=== PATIENT | male | born 1945 | race Caucasian/White ===

== ENCOUNTER → 2016-06-15 | Day surgery (SDC) | payer MEDICARE ==
[~2016-06-15] MED LIST: Acetaminophen TAB* 325 MG PO PRN; Buffered Lidocaine 1% SYR 3ML* 3 ML/SYR SYRINGE INTRADERM ONE; Buffered Lidocaine 1% SYR 3ML* 3 ML/SYR SYRINGE ONE; Cyclopentolate 1% OPTH.SOL* 2 ML BTL ONE; Flurbiprofen 0.03% OPTH.SOL* 2.5 ML BTL ONE; Lidocaine 1% MPF* 2 ML VIAL ONE; Midazolam* 1 MG/ML 5 ML VIAL (5 MG) ONE; Neomycin/Polymy/Dex OPHTH.OIN* 3.5 GM ONE; Phenylephrine 2.5% OPTH.SOL* 2 ML BTL ONE; Povidone Iodine 5% OPTH* 30 ML BTL ONE; Proparacaine 0.5% OPHTH.SOL* 15 ML BTL ONE; Tetracaine 0.5% OPTH.SOL 4 ML* 1 DROP BTL ONE; acetaZOLAMIDE TAB* 250 MG ONE; fentaNYL* 50 MCG/ML 2 ML VIAL (100 MCG VIAL) ONE
[2016-06-15 11:48] VITALS: BP 105/66
--- NOTE | 2016-06-16 03:49 | OP ---
DATE OF SURGERY: 06/15/16 - [facility] DATE OF : 41 SURGEON: Maycol Cortes MD ANESTHESIOLOGIST: Angélica Mccord MD ANESTHESIA: Monitored anesthesia care. 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 OPERATIVE PROCEDURE: Cataract extraction of the right eye. IMPLANTS: SN60WF 20.5 diopter lens to the right eye. COMPLICATIONS: None. DESCRIPTION OF PROCEDURE: The patient was given phenylephrine 2.5% and cyclopentolate 1% eyedrops to the operative eye in the preoperative area. The patient was brought to the operating room where a time-out was taken to identify the correct patient, site, and side of surgery. The patient's right eye was prepped and draped in the usual sterile fashion with 5% Betadine. A second time- out was taken to verify the correct patient, site, and side of surgery and correct lens selection. A lid speculum was placed to the right eye. A 1-mm paracentesis blade was used to make a clear corneal incision in the superotemporal position. Preservative-free 1% lidocaine was injected into the anterior chamber. DuoVisc was then injected into the anterior chamber. A 2.75 mm keratome blade was used to make a triplanar incision at the inferotemporal position. A cystotome was used to initiate a capsulorrhexis, which was completed with the Utrata forceps in a continuous and curvilinear manner. Hydrodissection of the lens was then performed with BSS on a cannula. The lens could be spun in the capsular bag. The phacoemulsification handpiece was then used with a opjnih-rbi-vqepvkm technique to remove the nucleus in its entirety with 14.65 CDE. During phacoemulsification, was reapplied to protect the endothelium. The I/A handpiece was then used to remove the residual cortical lens material. DuoVisc was then injected to inflate the capsular bag. The planned SN60WF 20.5 diopter lens was then injected into the capsular bag. The residual DuoVisc was then removed from the eye with the I/A handpiece. The corneal incisions were then hydrated and no leaks occurred at physiologic pressure around 20 mmHg per palpation. The lid speculum was then removed and drapes removed. Maxitrol ointment was then placed to the surface of the operative eye. An adhesive patch and shield were then placed on the operative eye. The patient was taken to the postoperative area in stable condition. [id number]/[facility] #: [id number] MTDD
== END | disposition home or self-care (01) ==
LOC: OREAST 09:14
PROVIDERS: ATTEND Student in an Organized Health Care Education/Training Program
DX: H25.11 Age-related nuclear cataract, right eye (principal); H18.51 Endothelial corneal dystrophy; I48.91 Unspecified atrial fibrillation; Z79.01 Long term (current) use of anticoagulants; Z87.891 Personal history of nicotine dependence; J44.9 Chronic obstructive pulmonary disease, unspecified
CPT/HCPCS: A9270-GY; J2250; J3010; V2632

== ENCOUNTER → 2016-06-22 | Day surgery (SDC) | payer MEDICARE ==
[~2016-06-22] MED LIST changes: -Buffered Lidocaine 1% SYR 3ML* 3 ML/SYR SYRINGE ONE; -Cyclopentolate 1% OPTH.SOL* 2 ML BTL ONE; -Flurbiprofen 0.03% OPTH.SOL* 2.5 ML BTL ONE; -Lidocaine 1% MPF* 2 ML VIAL ONE; +Midazolam* 1 MG/ML 2 ML VIAL (2 MG) ONE; -Midazolam* 1 MG/ML 5 ML VIAL (5 MG) ONE; -Neomycin/Polymy/Dex OPHTH.OIN* 3.5 GM ONE; -Phenylephrine 2.5% OPTH.SOL* 2 ML BTL ONE; -Povidone Iodine 5% OPTH* 30 ML BTL ONE; -Proparacaine 0.5% OPHTH.SOL* 15 ML BTL ONE; -Tetracaine 0.5% OPTH.SOL 4 ML* 1 DROP BTL ONE; -acetaZOLAMIDE TAB* 250 MG ONE; -fentaNYL* 50 MCG/ML 2 ML VIAL (100 MCG VIAL) ONE
[2016-06-22 08:27] VITALS: BP 98/60
--- NOTE | 2016-06-22 16:21 | OP ---
DATE OF OPERATION: 06/22/16 - [facility] DATE OF : 41 SURGEON: Maycol Cortes MD ANESTHESIOLOGIST: Kelby Alexis MD ANESTHESIA: Monitored anesthesia care. PRE-OP DIAGNOSIS: Cataract of the left eye. POST-OP DIAGNOSIS: Cataract of the left eye. OPERATIVE PROCEDURE: Cataract extraction of the left eye. IMPLANTS: SN60WF 21.0 diopter lens to the left eye. COMPLICATIONS: None. DESCRIPTION OF PROCEDURE: The patient was given phenylephrine 2.5% and cyclopentolate 1% eye drops to the operative eye in the preoperative area. The patient was brought to the operating room where a time-out was taken to identify the correct patient, site, and side of the surgery. The patient's left eye was prepped and draped in the usual sterile fashion with 5% Betadine. A second time- out was taken to verify the correct patient, site, and side of the surgery and correct lens selection. A lid speculum was placed to the left eye. A 1-mm paracentesis blade was used to make a clear corneal incision in the inferotemporal position. Preservative-free 1% lidocaine was injected into the anterior chamber. DuoVisc was then injected into the anterior chamber. A 2.75-mm keratome blade was used to make a triplanar incision at the superotemporal position. A cystotome was used to initiate a capsulorrhexis, which was completed with Utrata forceps in a continuous and curvilinear manner. Hydrodissection of the lens was then performed with BSS on the cannula. The lens could be spun in the capsular bag. The phacoemulsification handpiece was then used with a ngckwq-[id number]-rbmpoze technique to remove the nucleus in its entirety with 10.62 CDE. The I/A handpiece was then used to remove the residual cortical lens material. DuoVisc was then injected to inflate the capsular bag. The planned SN60WF 21.0 diopter lens was then injected into the capsular bag. The residual viscoelastic was then removed from the eye with the I/A handpiece. The corneal incisions were then hydrated and no leaks occurred at physiologic pressure around 20 mmHg per palpation. The lid speculum was then removed and drapes removed. Maxitrol ointment was then placed to the surface of the operative eye. An adhesive patch and shield was then placed on the operative eye. The patient was taken to the postoperative area in stable condition. [id number]/[facility] #: [id number] MTDD
== END | disposition home or self-care (01) ==
LOC: OREAST 06:27
PROVIDERS: ATTEND Student in an Organized Health Care Education/Training Program
DX: H25.12 Age-related nuclear cataract, left eye (principal); H18.51 Endothelial corneal dystrophy; I48.91 Unspecified atrial fibrillation; Z79.01 Long term (current) use of anticoagulants; R05 Cough; J44.9 Chronic obstructive pulmonary disease, unspecified
CPT/HCPCS: J2250; V2632

== ENCOUNTER 2019-05-02 12:58 | Emergency (ER) | payer MEDICARE ==
--- OUTSIDE RECORDS SUMMARY | 2019-05-02 13:19 | XMS REPORT | Summary of Care ---
:1945 Author Organization [facility] Address [address] [address] Care Team Providers Name Role Phone Deyanira Smith Primary Care Provider Reason for Visit Reason Comments Results labs and scan. Headache AVILES decreasing Encounter Details Date Type Department Care Team Description 03/09/2019 Office Visit [facility] Deyanira Smith MD Daily headache (Primary Dx); Medicine [address] shelter (current) use of anticoagulants; [address] [place] [address] PAF (paroxysmal atrial fibrillation) ([facility]) [place] [address] [phone] Allergies Active Allergy Reactions Severity Noted Date Comments Lactose Intolerance Swelling 07/12/2011 documented as of this encounter (statuses as of 03/09/2019) Medications Medication Sig Dispensed Refills Start Date End Date Status Calcium Take 0.5 Tabs by 0 Active Carbonate-Vitamin D mouth DAILY. 600-200 MG-UNIT Oral Tab Pediatric Take 2 Tabs by 0 Active Zodzsvye-Fwkvvpqw-B mouth DAILY. (CHILDRENS VITAMINS) 60 MG Oral Chew Tab GLUCOSAMINE Take 1 Tab by 0 Active CHONDROITIN COMPLX PO mouth DAILY. Fexofenadine HCl Take by mouth. 0 Active (RADHA PO) lisinopril (PRINIVIL, TAKE 1/2 TABLET BY 90 Tab 3 03/07/2018 Active ZESTRIL) 5 MG Oral MOUTH EVERY DAY TabIndications: Persistent atrial fibrillation, Nonischemic cardiomyopathy (HCC), First degree AV block carvedilol (COREG) TAKE ONE TABLET BY 180 Tab 3 09/05/2018 Active 6.25 MG Oral Tab MOUTH TWICE A DAY WITH MEALS AMOXICILLIN Take by mouth. 0 Active POIndications: prior Indications: prior to dental procedures to dental procedures warfarin (COUMADIN) 5 Take 1.5-2 Tabs by 150 Tab 3 01/26/2019 Active MG Oral mouth DAILY. As TabIndications: directed which is Persistent atrial 10mg Tu and Fri. fibrillation 7.5mg rest of week documented as of this encounter (statuses as of 03/09/2019) Active Problems Problem Noted Date Polyp of colon 08/01/2018 Overview: 04/23 [place] - Persistent atrial fibrillation 11/13/2015 Nonischemic cardiomyopathy 08/24/2013 First degree AV block 02/24/2012 Atrial flutter 12/14/2011 tank terminal gauger (current) use of anticoagulants 08/13/2011 Overview: Managed by: [facility] Referring Provider: Dez Indication: afib Target Range: 2.0-3.0 Duration: Inedfinite Additional factors influencing anticoagulation: CHADS2 score of 1 for LV dysfunction [id number] score of 2 for LV dysfunction and age > 65 History of mitral valve repair Aspirin increases bleeding risk Updated referral 07/14/2012, 09/2013, 10/2014, 01/13/16, 03/2017, 04/2018 Updated order 09/14/2013, 10/25/14, 01/30/16, 03/31/17, 05/03/18 S/P mitral valve repair 07/28/2011 Overview: Transthoracic Echocardiogram 3.7.12: FINAL IMPRESSION: Normal LV size and wall thickness. Regional wall motion abnormalities as described. Mild global LV systolic dysfunction with estimated LV EF 40-45%. Biatrial enlargement. Dilated RV with reduced contractility and evidence of RV volume overload. Mild-moderate aortic regurgitation. Mitral valve s/p repair with mild aortic regurgitation. Mild-moderate tricuspid regurgitation. Borderline pulmonary hypertension. No pericardial effusion. Mitral regurgitation 04/14/2011 Atrial fibrillation 04/14/2011 Overview: Results for NADER SHARIF ( ) as of 09/21/2011 16:51 Ref. Range 07/09/2011 14:55 08/17/2011 00:00 08/20/2011 00:00 08/27/2011 00:00 2011 00:00 PTT Patient Latest Range: 22.7-34.5 SEC 30.4 INR Latest Range: 0.85-1.15 RATIO 1.27 (H) 3.6 3.4 2.9 2.0 Arthritis 04/14/2011 Seasonal allergies 04/14/2011 Asthma 04/14/2011 Overview: Mild COPD documented as of this encounter (statuses as of 03/09/2019) Immunizations Name Administration Dates Next Due Influenza Vaccine 65 Yrs + 03/09/2019 PNEUMOCOCCAL POLYSACCHARIDE VACCINE 03/11/2012 Pneumococcal Conjugate(13 Valent) 08/01/2016 documented as of this encounter Social History Tobacco Use Types Packs/Day Years Used Date Former Smoker Quit: 04/14/1960 Smokeless Tobacco: Never Used Comments: Has never smoked regularly / and not for 50 years Alcohol Use Drinks/Week oz/Week Comments No 0 Standard drinks or equivalent 0.0 Sex Assigned at Date Recorded Not on file Job Start Date Occupation Industry Not on file Not on file Not on file Travel History Travel Start Travel End No recent travel history available. documented as of this encounter Last Filed Vital Signs Vital Sign Reading Time Taken Comments Blood Pressure 107/61 03/09/2019 2:55 PM EDT Pulse 80 03/09/2019 2:55 PM EDT Temperature - - Respiratory Rate - - Oxygen Saturation 96% 03/09/2019 2:55 PM EDT Inhaled Oxygen Concentration - - Weight 81.6 kg (180 lb) 03/09/2019 2:55 PM EDT Height 177.8 cm (5' 10") 03/09/2019 2:55 PM EDT Body Mass Index 25.83 03/09/2019 2:55 PM EDT documented in this encounter Patient Instructions Patient InstructionsDeyanira Smith MD - 03/09/2019 2:40 PM EDTPlan For the POST NASAL DRIP - Continue radha - Try a whole pill - May also try nasal spray - flonase - ( steroid ) - For the headache - Observe for now- If not satisfied - Try treating for new persistant daily headache - Consider NOAC - eliquis / xarelto- documented in this encounter Progress Notes Deyanira Smith MD - 03/09/2019 2:40 PM EDT NAME:Nader Sharif [birth year] ENC Date: 03/09/2019 CC: Chief Complaint Patient presents with Results labs and scan. Headache AVILES decreasing Nader Sharif is a 73-y.o. male Seen for relatively new daily headache - Blood work / ct scan done in interval since being seen History from last visit : Has no history of headaches - No new medication or treatments / has not stopped caffeine - Had tooth pulled -recently 01/19/19 - Has had silent tooth infection going on before - Headache diffuse - no focality - Lays down for 20min - 1 hour and the headache resolved - Headache comes on h 1 hour after moving around - Headache better but still active- thinks increase in radha to half pll has improved headache- Runny nose better Current Outpatient Medications Medication Sig AMOXICILLIN PO Take by mouth. Indications: prior to dental procedures Calcium Carbonate-Vitamin D 600-200 MG-UNIT Oral Tab Take 0.5 Tabs by mouth DAILY. carvedilol (COREG) 6.25 MG Oral Tab TAKE ONE TABLET BY MOUTH TWICE A DAY WITH MEALS Fexofenadine HCl (RADHA PO) Take by mouth. GLUCOSAMINE CHONDROITIN COMPLX PO Take 1 Tab by mouth DAILY. lisinopril (PRINIVIL, ZESTRIL) 5 MG Oral Tab TAKE 1/2 TABLET BY MOUTH EVERY DAY Pediatric [place]-A (CHILDRENS VITAMINS) 60 MG Oral Chew Tab Take 2 Tabs by mouth DAILY. warfarin (COUMADIN) 5 MG Oral Tab Take 1.5-2 Tabs by mouth DAILY. As directed which is 10mg Tue and Fri. 7.5mg rest of week No current facility-administered medications for this visit. Patient Active Problem List Diagnosis Date Noted Polyp of colon 08/01/201804/23 [place] - Persistent atrial fibrillation 11/13/2015 Nonischemic cardiomyopathy (HCC) 08/24/2013 First degree AV block 02/24/2012 Atrial flutter (HCC) 12/14/2011 tank terminal gauger (current) use of anticoagulants 08/13/2011 Managed by: [facility] Referring Provider: Dez Indication: afib Target Range: 2.0-3.0 Duration: Inedfinite Additional factors influencing anticoagulation: CHADS2 score of 1 for LV dysfunction [id number] score of 2 for LV dysfunction and age > 65 History of mitral valve repair Aspirin increases bleeding risk Updated referral 07/14/2012, 09/2013, 10/2014, 01/13/16, 03/2017, 04/2018 Updated order 09/14/2013, 10/25/14, 01/30/16, 03/31/17, 05/03/18 S/P mitral valve repair 07/28/2011 Transthoracic Echocardiogram 3.7.12: FINAL IMPRESSION: Normal LV size and wall thickness. Regional wall motion abnormalities as described. Mild global LV systolic dysfunction with estimated LV EF 40-45%. Biatrial enlargement. Dilated RV with reduced contractility and evidence of RV volume overload. Mild-moderate aortic regurgitation. Mitral valve s/p repair with mild aortic regurgitation. Mild-moderate tricuspid regurgitation. Borderline pulmonary hypertension. No pericardial effusion. Mitral regurgitation 04/14/2011 Atrial fibrillation (HCC) 04/14/2011 Results for NADER SHARIF ( ) as of 09/21/2011 16:51 Ref. Range 07/09/2011 14:55 08/17/2011 00:00 08/20/2011 00:00 08/27/2011 00:00 2011 00:00 PTT Patient Latest Range: 22.7-34.5 SEC 30.4 INR Latest Range: 0.85-1.15 RATIO 1.27 (H) 3.6 3.4 2.9 2.0 Arthritis 04/14/2011 Seasonal allergies 04/14/2011 Asthma 04/14/2011 Mild COPD Family History Problem Relation Age of Onset Cancer Mother Lung Stroke Father Heart Sister Cancer Child Diabetes Maternal Aunt 2 aunts No cardiopulmonary symptoms No upper or lower GI complaints No urinary tract symptoms. No bruising/ bleeding. No neurological complaints . No insomnia.+ . Social History Tobacco Use Smoking status: Former Smoker Last attempt to quit: 04/14/1960 Years since quittin.9 Smokeless tobacco: Never Used Tobacco comment: Has never smoked regularly / and not for 50 years Substance Use Topics Alcohol use: No Alcohol/week: 0.0 standard drinks Drug use: No OBJECTIVE: BP 107/61 | Pulse 80 | Ht 5' 10" (1.778 m) | Wt 180 lb (81.6 kg) | SpO2 96% | BMI 25.83 kg/m . Heent neg Neck no JVD, thyromegaly or bruit Lungs Clear CV rrr Abd soft, nontender, no organomegaly Ext no edema; no lesions; pulses intact Neuro: intellect intact ; motor including gait unremarkable A/P ICD-9-CM ICD-10-CM 1. Daily headache 784.0 R51 2. shelter (current) use of anticoagulants V58.61 Z79.01 3. PAF (paroxysmal atrial fibrillation) ([facility]) 427.31 I48.0 Patient Instructions Plan For the POST NASAL DRIP - Continue radha - Try a whole pill - May also try nasal spray - flonase - ( steroid ) - For the headache - Observe for now- If not satisfied - Try treating for new persistant daily headache - Consider NOAC - eliquis / xarelto- AUTHOR: Deyanira Smith MD 15:40 03/09/2019 documented in this encounter Plan of Treatment Date Type Specialty Care Team Description 03/16/2019 AntiCoag Anticoagulation 10/11/2019 Orders Only Cardiology 10/19/2019 Office Visit Cardiology Julián Tian MD [address] [place] [address] [phone] Health Maintenance Due Date Last Done Comments MEDICARE ANNUAL WELLNESS VISIT 1945 HIV SCREENING 10/02/1958 COLONOSCOPY SCREENING 10/02/1993 ZOSTER IMMUNIZATION SERIES (1 10/02/1993 of 2) AAA SCREENING/SURVEILLANCE 10/02/2008 INFLUENZA VACCINE (#1) 2019 DEPRESSION SCREENING 11/03/2019 11/02/2018 FALL RISK ASSESSMENT 11/08/2019 11/07/2018, 11/07/2018 LIPID DISORDER SCREENING 02/16/2020 02/15/2019, 01/30/2019 PNEUMOCOCCAL 65+YRS Completed 08/01/2016, 03/11/2012 HPV IMMUNIZATION SERIES Aged Out No longer eligible based on patient's age to complete this topic MENINGOCOCCAL VACCINE IMM Aged Out No longer eligible based on patient's age to complete this topic documented as of this encounter Implants Implanted Type Area Reliability Manager Device Shelf Model / Identifier Expiration Date Serial / Lot 3d Annuloplasty Ring Mitral [employer] [id number] / Implanted: Qty: 1 on 07/09/2011 at [facility] [id number] / [id number] documented as of this encounter Results Not on filedocumented in this encounter Visit Diagnoses Diagnosis Daily headache - Primary Headache shelter (current) use of anticoagulants Long-term (current) use of anticoagulants PAF (paroxysmal atrial fibrillation) (HCC) Atrial fibrillation documented in this encounter Insurance Payer Benefit Plan / Subscriber ID Effective Dates Phone Address Type Group UHC MEDICARE [employer] xxxxxxxxx 2016-Present UHC ADVANTAGE MEDICARE ADVANTAGE Guarantor Name Account Type Relation to Date of Phone Billing Patient Address Nader Sharif Personal/Family 1945 [id number] (Home) [address] [phone] [place] [place] (Work) [id number] documented as of this encounter
--- NOTE | 2019-05-02 13:42 | ED ---
Complex/Multi-Sys Presentation - HPI Summary HPI Summary: 73-year-old male with significant past medical history of mechanical mitral valve replacement, persistent atrial fibrillation presents to emergency department today complaining of increased weakness. He states he has felt increasingly more weak over the last few days and today he felt he had 2 episodes where he was unable to move. He denies any lightheadedness, chest pain , diaphoresis, shortness of breath, changes in vision during these episodes and describes them as "a enriquez running down my body". He states he had two of these episodes today and both while seated. His first episode was at noon and his second episode was 30 minutes later when getting in the car to come to the emergency department. He endorses a 15 pound weight loss over the last year and states he is slowly been becoming more weak. He endorses no trauma and no syncope as sequela of these "episodes". he takes warfarin for his atrial fibrillation. He denies recent medication changes. He denies alcohol use, recreational drug use, smoking. He denies fever, chest pain, abdominal pain, shortness of breath, pain with urination, rash. - History Of Current Complaint Chief Complaint: EDWeakness Time Seen by Provider: 05/02/19 13:27 Hx Obtained From: Patient, Family/Elastic Attacher Chainstitch - at the bedside Onset/Duration: Gradual Onset, Lasting Weeks Timing: Intermittent, Lasting: Associated Signs And Symptoms: Positive: Weakness, Decreased Oral Intake, Anticoagulation Therapy. Negative: Headache, Chest Pain, Palpitations, Nausea, Vomiting, Abdominal Pain, Recent Trauma - Allergies/Home Medications Allergies/Adverse Reactions: Allergies Allergy/AdvReac Type Severity Reaction Status Date / Time No Known Allergies Allergy Verified 05/02/19 13:38 Home Medications: Home Medications Calcium Carbonate/Vitamin D3 [Calcium 600/Vitamin D3] 1 tab PO DAILY 05/02/19 [ History Confirmed 05/02/19] PMH/Surg Hx/FS Hx/Imm Hx Endocrine/Hematology History: Reports: Hx Anticoagulant Therapy - warfarin Cardiovascular History: Reports: Hx Atrial Fibrillation, Hx Peripheral Vascular Disease - A-FIB, Other Cardiovascular Problems/Disorders - 2011 MITRAL VALVE REPAIR Respiratory History: Reports: Hx Asthma - MILD, Other Respiratory Problems/ Disorders - 2009 PULMONARY FUNCTION TEST Musculoskeletal History: Reports: Hx Arthritis Sensory History: Reports: Hx Cataracts - BILATERAL, Hx Contacts or Glasses - READING GLASSES, Hx Hearing Aid - BILATERAL Opthamlomology History: Reports: Hx Cataracts - BILATERAL, Hx Contacts or Glasses - READING GLASSES - Surgical History Surgery Procedure, Year, and Place: MOLE REMOVED MANY YEARS AGO. 2012 MITRAL VALVE REPAIR, [place] Hx Anesthesia Reactions: No - Immunization History Date of Tetanus Vaccine: Patient states 2006 Infectious Disease History: No Infectious Disease History: Reports: Hx Hepatitis - HEP A-1966 Denies: Traveled Outside the [place] in Last 30 Days - Social History Alcohol Use: None Substance Use Type: Reports: None Smoking Status (MU): Former Smoker Type: Cigars Amount Used/How Often: 1 CIGAR OCCASIONALLY Review of Systems Constitutional: Negative Eyes: Negative ENT: Negative Cardiovascular: Negative Respiratory: Negative Gastrointestinal: Negative Genitourinary: Negative Musculoskeletal: Negative Skin: Negative Positive: Weakness. Negative: Headache, Paresthesia, Numbness, Syncope, Slurred Speech Psychological: Normal All Other Systems Reviewed And Are Negative: Yes Physical Exam Triage Information Reviewed: Yes Vital Signs On Initial Exam: Initial Vitals Temp Pulse Resp BP Pulse Ox 99.0 F 73 18 112/70 98 05/02/19 13:09 05/02/19 13:09 05/02/19 13:09 05/02/19 13:09 05/02/19 13:09 Vital Signs Reviewed: Yes Appearance: Positive: Well-Appearing, No Pain Distress, Well-Nourished Skin: Positive: Warm, Skin Color Reflects Adequate Perfusion Eyes: Positive: EOMI, MARÍA, Conjunctiva Clear ENT: Positive: Hearing grossly normal Respiratory/Lung Sounds: Positive: Clear to Auscultation, Breath Sounds Present Cardiovascular: Positive: RRR, S1, S2 Abdomen Description: Positive: Nontender, Soft. Negative: Distended, Guarding Bowel Sounds: Positive: Present Musculoskeletal: Positive: Strength/ROM Intact Neurological: Positive: Sensory/Motor Intact, Alert, Oriented to Person Place, Time, Speech Normal. Negative: Disoriented, Slurred Speech Psychiatric: Positive: Normal AVPU Assessment: Alert Procedures - Sedation Patient Received Moderate/Deep Sedation with Procedure: No Diagnostics - Vital Signs Vital Signs Temp Pulse Resp BP Pulse Ox 05/02/19 13:09 99.0 F 73 18 112/70 98 - Laboratory Result Diagrams: 05/02/19 13:55 05/02/19 13:55 Lab Statement: Any lab studies that have been ordered have been reviewed, and results considered in the medical decision making process. Complex Multi-Symp Course/Dx Course Of Treatment: Patient was evaluated in the emergency department today for weakness. The patient was seen and examined his vitals are stable and he is afebrile. Laboratory studies were ordered as well as an EKG for investigation of possible causes of weakness. EKG showed atrial fibrillation at a rate of 70 bpm. no evidence of acute myocardial infarction. There is a right bundle branch block. There are Q waves in lead 3, aVF. There is no prior EKG for comparison. Laboratory results returned showing no evidence of leukocytosis, anemia, or significant electrolyte abnormality. There are no elevations and lactic acid levels which would be suggestive of seizure activity. BUN/creatinine ratio is 27.3 which is elevated however this is his baseline. Initial troponin was 0.01 and serial troponin was 0.01. There is no evidence of acute myocardial infarction causing his symptoms. Orthostatic vital signs were done and showed no evidence of orthostatic hypotension. All of his labs have returned within normal limits and I am unsure of what is causing his symptoms. It is possible his symptoms are caused by a Cardiologic origin so he should follow-up with his primary care physician for further evaluation and management of his symptoms. He was told to return to the emergency department immediately if he developed any new or worsening symptoms. Patient's family agree with this plan. - Diagnoses Provider Diagnoses: Weakness - Physician Notifications Discussed Care Of Patient With: Juliet Davenport - Dr. Davenport did not feel the patient was appropriate for hospital admission. Discharge ED - Sign-Out/Discharge Documenting (check all that apply): Patient Departure - Discharge Plan Condition: Stable Disposition: HOME Patient Education Materials: Weakness (ED) Referrals: Deyanira Smith MD [Primary Care Provider] - 1 Day Additional Instructions: You were seen in the emergency department today for weakness. I'm not sure what is causing your weakness however, Laboratory studies done in the emergency department were all normal. Please follow up with your primary care physician for further evaluation and management of your symptoms as this may be caused by your medications. Please return to the emergency department immediately if you develop any new or worsening symptoms. - Billing Disposition and Condition Condition: STABLE Disposition: Home
[2019-05-02 14:14] LABS: ABS Lymphocytes 0.8 10^3/ul (1.0-4.8); ABS Monocytes 0.5 10^3/ul (0-0.8); ABS Neutrophils 7.7 10^3/ul (1.5-7.7); Eosinophil % 0.1 %; Hematocrit 42 % (42-52); Hemoglobin 14.5 g/dL (14.0-18.0); Lymphocyte % 8.5 %; Mean Corpuscular HGB Conc 35 g/dL (31-36); Mean Corpuscular Hemoglobin 33 pg (27-31); Mean Corpuscular Volume 93 fL (80-94); Mean Platelet Volume 9.2 fL (7.4-10.4); Platelet Count 148 10^3/uL (150-450); Red Blood Count 4.44 10^6 /uL (4.18-5.48); Red Cell Distribution Width 13 % (10-15)
[2019-05-02 14:20] LABS: INR 2.43 (0.82-1.09)
[2019-05-02 14:41] LABS: Troponin I 0.01 ng/mL (<0.03)
[2019-05-02 14:56] LABS: Albumin 3.8 g/dL (3.2-5.2); Albumin/Globulin Ratio 1.7 (1-3); BUN/Creatinine Ratio 27.3 (8-20); Calcium 9.1 mg/dL (8.6-10.3); EGFR African American 119.2 (>60); EGFR Non-African American 98.5 (>60); Globulin 2.2 g/dL (2-4); Magnesium 1.8 mg/dL (1.9-2.7); Potassium 4.4 mmol/L (3.5-5.0); Total Bilirubin 0.6 mg/dL (0.2-1.0)
[2019-05-02 16:19] LABS: Urine Appearance Clear; Urine Bilirubin Negative (Negative); Urine Blood Negative (Negative); Urine Color Yellow; Urine Glucose Negative (Negative); Urine Ketones Negative (Negative); Urine Nitrite Negative (Negative); Urine Protein Negative (Negative); Urine Specific Gravity 1.023 (1.010-1.030); Urine Urobilinogen Negative (Negative)
[2019-05-02 17:24] VITALS: BP 123/71
== END 2019-05-02 17:23 | disposition home or self-care (01) ==
LOC: ED 12:58
DX: R53.1 Weakness (principal); I48.19 Other persistent atrial fibrillation; Z95.2 Presence of prosthetic heart valve; I73.9 Peripheral vascular disease, unspecified; Z87.891 Personal history of nicotine dependence; Z79.01 Long term (current) use of anticoagulants; Z79.899 Other long term (current) drug therapy
CPT/HCPCS: 36415; 80053; 81003; 83605; 83735; 84484; 85025; 85610; 93005; 99283

== ENCOUNTER 2019-05-03 03:40 | Observation (INO) | payer MEDICARE ==
--- NOTE | 2019-05-03 03:51 | ED ---
Altered Mental Status - HPI Summary HPI Summary: Pt is a 73 y/o M presenting to the ED with a chief complaint of altered mental status. LEVEL 5 CAVEAT: Pts full hx and physical is limited d/t increased confusion. Per EMS, pt has been having bouts of confusion and decreased levels of responsiveness. He woke his up tonight with similar sx, and EMS was unable to get him to verbally communicate with them. He eventually conversed and was alert & oriented x3, but is now only answering that he is in [place], it is 2019, and close to [place]. He notes R shoulder pain. Pt's describes a grand mal seizure. She states he woke her up, then began convulsing, frothing at the mouth, and his eyes rolled back. - History Of Current Complaint Chief Complaint: EDAltMentalStatus Stated Complaint: AMS PER EMS Hx Obtained From: EMS Hx From Patient Unobtainable Due To: Altered Mental Status Onset/Duration: Still Present, Suddenly Timing: Constant, Lasting Hours Severity Initially: Moderate Severity Currently: Moderate Character: Confusion, Responsiveness Aggravating Factor(s): Unknown Alleviating Factor(s): Unknown Associated Signs And Symptoms: Positive: Negative - Allergies/Home Medications Allergies/Adverse Reactions: Allergies Allergy/AdvReac Type Severity Reaction Status Date / Time No Known Allergies Allergy Verified 05/02/19 13:38 PMH/Surg Hx/FS Hx/Imm Hx Previously Healthy: Yes Endocrine/Hematology History: Reports: Hx Anticoagulant Therapy - warfarin Cardiovascular History: Reports: Hx Atrial Fibrillation, Hx Peripheral Vascular Disease - A-FIB, Other Cardiovascular Problems/Disorders - 2011 MITRAL VALVE REPAIR Respiratory History: Reports: Hx Asthma - MILD, Other Respiratory Problems/ Disorders - 2009 PULMONARY FUNCTION TEST Musculoskeletal History: Reports: Hx Arthritis Sensory History: Reports: Hx Cataracts - BILATERAL, Hx Contacts or Glasses - READING GLASSES, Hx Hearing Aid - BILATERAL Opthamlomology History: Reports: Hx Cataracts - BILATERAL, Hx Contacts or Glasses - READING GLASSES - Surgical History Surgery Procedure, Year, and Place: MOLE REMOVED MANY YEARS AGO. 2011 MITRAL VALVE REPAIR, [place] Hx Anesthesia Reactions: No - Immunization History Date of Tetanus Vaccine: Patient states 2006 Infectious Disease History: No Infectious Disease History: Reports: Hx Hepatitis - HEP A-1966 Denies: Traveled Outside the [place] in Last 30 Days - Family History Known Family History: Positive: Other - LEVEL 5 CAVEAT: Unable to obtain hx d/t AMS - Social History Lives: With Family Alcohol Use: None Hx Substance Use: No Substance Use Type: Reports: None Hx Tobacco Use: Yes Smoking Status (MU): Former Smoker Type: Cigars Amount Used/How Often: 1 CIGAR OCCASIONALLY Review of Systems - ROS Summary Review of Systems Summary: LEVEL 5 CAVEAT d/t AMS Positive: Arthralgia - R shoulder Neurological: Other - confusion, dec. level of responsiveness All Other Systems Reviewed And Are Negative: No Physical Exam - Summary Physical Exam Summary: Appearance: Well-appearing, Well-nourished, lying in bed comfortably Skin: Warm, dry, no obvious rash Eyes: sclera anicteric, no conjunctival pallor ENT: mucous membranes moist, pharynx appears normal Neck: Supple, nontender Respiratory: Clear to auscultation, no signs of respiratory distress Cardiovascular: Normal S1, S2. No murmurs. Normal distal pulses in tibial and radial bilaterally. Abdomen: Soft, nontender, normal active bowel sounds present Musculoskeletal: Normal, Strength/ROM Intact. Some pain with ROM of R shoulder. Neurological: Pt is awake and alert, oriented to [place] and the year, but could not name president or what month it was. Doesnt appear to have any focal motor deficits. Psychiatric: affect is normal, does not appear anxious or depressed Triage Information Reviewed: Yes Vital Signs On Initial Exam: Initial Vitals Temp Pulse Resp BP Pulse Ox 97.9 F 77 16 156/87 98 05/03/19 03:41 05/03/19 03:41 05/03/19 03:41 05/03/19 03:41 05/03/19 03:41 Vital Signs Reviewed: Yes Completion Of Physical Exam Limited Due To: Altered Mental Status, Level 5 - Watts Coma Scale Best Eye Response: 4 - Spontaneous Best Motor Response: 6 - Obeys Commands Best Verbal Response: 5 - Oriented Coma Scale Total: 15 Procedures - Sedation Patient Received Moderate/Deep Sedation with Procedure: No Diagnostics - Vital Signs Vital Signs Temp Pulse Resp BP Pulse Ox 05/03/19 03:41 97.9 F 77 16 156/87 98 - Laboratory Result Diagrams: 05/04/19 06:50 05/04/19 06:50 Lab Statement: Any lab studies that have been ordered have been reviewed, and results considered in the medical decision making process. - Radiology Right Shoulder XR Radiology Interpretation Completed By: ED Physician Summary of Radiographic Findings: Negative for fracture. ED physician has reviewed and interpreted this imaging report. Pending official read. - CT Brain CT CT Interpretation Completed By: Radiologist Summary of CT Findings: No acute intracranial abnormality. ED physician has reviewed this report. Altered Mental Statu Course/Dx - Course Course Of Treatment: 73 y/o M presenting to ED brought in by EMS for AMS. LEVEL 5 CAVEAT d/t AMS. Pt has been having episodes similar to syncope where he becomes less responsive and increasingly confused, varying in duration. Tonight he woke his up with similar sx. EMS states he was not responding to them on arrival, then was A&Ox3, but on arrival to ED he is not answering many questions and is somewhat confused. He notes R shoulder pain. Pt's describes a grand mal seizure. She states he woke her up, then began convulsing , frothing at the mouth, and his eyes rolled back. On exam, pt has some pain with ROM of the R shoulder. Pt is awake and alert, oriented to [place] and the year, but could not name president or what month it was. Doesnt appear to have any focal motor deficits. Brain CT shows: No acute intracranial abnormality. Right Shoulder XR is negative. Patient admitted to [facility] with acceptance from Dr. Phoenix. - Diagnoses Provider Diagnoses: Grand mal seizure - Provider Notifications Discussed Care Of Patient With: Alexandra Phoenix - hospitalist Time Discussed With Above Provider: 05:10 Instructed by Provider To: Other - I discussed the patient's case with Dr. Phoenix who accepts the patient for admission. - Critical Care Time Critical Care Time: 30-74 min - New onset seizure disorder requiring IV keppra bolus and careful monitoring Discharge ED - Sign-Out/Discharge Documenting (check all that apply): Patient Departure - Patient accepted for admission by Dr. Phoenix. - Discharge Plan Condition: Stable Disposition: ADMITTED TO [facility] - Billing Disposition and Condition Condition: STABLE Disposition: Admitted to [facility] - Attestation Statements Document Initiated by Scribe: Yes Documenting Scribe: Lexis Barksdale Provider For Whom Scribe is Documenting (Include Credential): Luis Johnson MD. Scribe Attestation: Lexis Lyle, scribed for Luis Johnson MD. on 05/06/19 at 0353. Scribe Documentation Reviewed: Yes Provider Attestation: The documentation as recorded by the scribe, Lexis Barksdale accurately reflects the service I personally performed and the decisions made by me, Luis Johnson MD. Status of Scribe Document: Viewed
[2019-05-03] MEDS ORDERED: levETIRAcetam 1000MG IVPREMIX* 1,000 MG/100 ML BAG IVPB ONE (03:55)
[2019-05-03 04:29] LABS: Urine Appearance Cloudy; Urine Bilirubin Negative (Negative); Urine Blood Negative (Negative); Urine Color Yellow; Urine Glucose Negative (Negative); Urine Ketones Negative (Negative); Urine Nitrite Negative (Negative); Urine Protein 2+(100 mg/dL) (Negative); Urine Specific Gravity 1.018 (1.010-1.030); Urine Urobilinogen Negative (Negative)
[2019-05-03 04:33] LABS: Urine Bacteria Absent (Absent); Urine Red Blood Cell 1+(3-5/hpf) (Absent); Urine White Blood Cell Trace(0-5/hpf) (Absent)
[2019-05-03] MEDS ORDERED: Lorazepam PYXIS KEY PRN (06:08)
[2019-05-03] MEDS ORDERED: LORazepam INJ* 2 MG/ML 1 ML VIAL IV PUSH PRN (06:08)
[2019-05-03 08:04] LABS: ABS Lymphocytes 0.9 10^3/ul (1.0-4.8); ABS Monocytes 0.7 10^3/ul (0-0.8); Hematocrit 41 % (42-52); Lymphocyte % 7.6 %; Mean Corpuscular HGB Conc 34 g/dL (31-36); Mean Corpuscular Hemoglobin 32 pg (27-31); Mean Corpuscular Volume 93 fL (80-94); Platelet Count 136 10^3/uL (150-450); Red Blood Count 4.39 10^6 /uL (4.18-5.48); Red Cell Distribution Width 13 % (10-15); White Blood Count 11.6 10^3/uL (3.5-10.8)
[2019-05-03 08:21] LABS: Albumin 3.4 g/dL (3.2-5.2); Albumin/Globulin Ratio 1.8 (1-3); BUN/Creatinine Ratio 21.3 (8-20); Calcium 8.9 mg/dL (8.6-10.3); EGFR African American 122.8 (>60); EGFR Non-African American 101.5 (>60); Globulin 1.9 g/dL (2-4); Magnesium 1.9 mg/dL (1.9-2.7); Potassium 3.9 mmol/L (3.5-5.0); Total Bilirubin 0.6 mg/dL (0.2-1.0); Total Protein 5.3 g/dL (6.4-8.9)
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
[2019-05-03 10:19] LABS: INR 2.55 (0.82-1.09)
[2019-05-03] MEDS ORDERED: Acetaminophen TAB* 325 MG PO PRN (11:14)
[2019-05-03] MEDS: Lisinopril TAB* 5 MG PO SCH (11:15)
[2019-05-03] MEDS: Carvedilol TAB* 6.25 MG PO SCH ×2 (11:16→21:56)
[2019-05-03] MEDS: NS 0.9% 1000 ML** 1,000 ML IV SCH ×2 (11:23→23:01)
[2019-05-03 12:13] LABS: Phosphorus 2.8 mg/dL (2.5-5.0)
--- NOTE | 2019-05-03 13:09 | PN ---
Hospitalist Progress Note Date of Service: 05/03/19 They found mitral valve repair hardware information: Placed 07/09/[address] Nahum Candelario Matthew Kenney Cuisine Device S/N [id number] 34 mm MRI Conditional Static Field 1.5T, 3.0T Spatial Gradient field <= 1000 Gs/cm Maximum whole body SESAR of 4.0 W/kg for <= 15 minutes as read from equipment monitor
[2019-05-03] MEDS: levETIRAcetam TAB* 500 MG PO SCH ×2 (13:11→21:54)
--- NOTE | 2019-05-03 13:42 | CONS ---
NEUROLOGY CONSULTATION NOTE: DATE OF CONSULT: 05/03/19 CONSULTING PROVIDER: Dr. Phoenix. REASON FOR CONSULT: Seizures. CHIEF COMPLAINT: Seizure-like activity with headaches. HISTORY OF PRESENT ILLNESS: Mr. Nader Sharif is a 73-year-old man with a past medical history significant for atrial fibrillation, on Coumadin with therapeutic INR, mitral valve repair with a metallic ring at [place] in 2011 that is not MRI compatible according to the patient and his spouse, hypertension, who presented on 05/02/19 with headaches and episodes of loss of awareness. According to Nader, he has had headache since last summer. The history was mostly obtained from the patient's , Jeanne. Jeanne stated that since October 2018 , the patient has had intermittent headaches. The headaches are described as generalized holocephalic pain that lasts for 1 to 2 hours. The headaches are usually triggered by working outside. It was thought that he may have had sinus or allergy related headaches. The patient began taking Nora. The headaches improved, but after reducing the dose from 1 tablet to half a tablet, the headaches returned. The patient also had a root canal, status post tooth extraction for drainage in October 2018. From December to January 2019, the headaches worsened. He did have 2 to 3 headaches a week. The headaches would last about 1 to 2 hours. Tylenol and taking a nap helps the pain. He denied any photo or phonophobia. He denied any neck tenderness. He has never had any severe headaches. The headache is described as a throbbing sensation. His last headache was this morning after he had seizure-like activity. Apparently, yesterday, the patient was standing and adjusting his medication with his spouse. This was around the afternoon time. While going through the pillbox, the patient suddenly developed loss of awareness. He slumped over. It took about approximately 8-10 seconds to awake to his normal self, but he was complaining of headaches. The patient had a few more episodes of similar presentations yesterday before his spouse contacted one of the INR nurses who encouraged him to come to the ER for further evaluation. On the way to the hospital, the patient had a few other episodes. The spouse described him as appearing extremely pale with a white face. He does not respond during the event. He was not convulsing at that time. In the ER, he had a few episodes, but after evaluation from the ER doctor, it was felt that the patient can go home. The patient went home, but to come back immediately after having a generalized tonic-clonic seizure witnessed by his at 2 a.m. this morning. Spouse reported that she saw the patient foaming at the mouth, eyes rolling to the back of the head, extension of both upper extremities blocking his head, lasting for approximately 1-2 minutes. He did not have any urinary incontinence. He did have tongue biting. EMS was contacted and the patient was brought to the ER for further evaluation. In the hospital, the patient had another witnessed seizure that was treated with Ativan as well as was loaded with levetiracetam at 3 a.m. 1000 mg IV x1. He was maintained on 1000 mg p.o. twice daily. The patient does have history of 40-pound weight loss over the last 1 year. This is intentional. He did have a colonoscopy done in 2017 that was unremarkable. He has not had a prostate examination. SEIZURE RISK FACTORS: The patient has a family history, his granddaughter who suffers from epilepsy. He has no history of meningitis or encephalitis. He has no history of drug or alcohol abuse. He denied any febrile seizures as a child. He denied any spinal cord or brain surgeries. PAST MEDICAL HISTORY: Bilateral shoulder pain that is worsened after the generalized convulsion. Atrial fibrillation. Ring mitral valve repair at [place] in 2011. Punctured right eardrum this year. Hypertension. HOME MEDICATIONS: 1. Warfarin 7.5 mg p.o. daily. 2. Lisinopril 2.5 mg p.o. in the morning. 3. Carvedilol 6.25 mg p.o. b.i.d. 4. Fexofenadine 90 mg p.o. in the morning. 5. Multivitamin. 6. Glucosamine. 7. Calcium 1 tab p.o. daily. ALLERGIES: No known drug allergies. FAMILY HISTORY: Granddaughter with seizures. However, no immediate family history of stroke or seizures. SOCIAL HISTORY: The patient was a former smoker, but has not smoked for the past 45 years. He used to smoke cigars. He denied any excessive alcohol use. He is a mechanic foreman for 40 years. REVIEW OF SYSTEMS: A 12-point review of systems was obtained and otherwise negative except for what was mentioned in the HPI. PHYSICAL EXAM: Vitals: Temperature of 99.1, pulse of 69, respiratory rate of 16, oxygen saturation of 99%, blood pressure of 125/69. General: Well- nourished, well- developed man, in no acute distress. Head: Atraumatic and normocephalic without any obvious abnormality. Neck is supple and symmetrical with no carotid bruits. Eyes: Conjunctivae/corneas are clear. Cardiac: Irregular rhythm and rate with no murmurs. Respiratory: Clear to auscultation bilaterally with no wheezing. Extremities: Normal range of motion with flat feet and slightly hammertoes on the right. He has got venous engorgement in the lower extremities. Skin: No skin lesions or lacerations. Psych: Affect is broad and normal mood, but he has got mild psychomotor slowing due to a postictal state. Neurological Examination: Mental Status: Awake, alert, and oriented to person, place, time, and general circumstances. Speech and language including repetition, comprehension and fluency were assessed and found to be normal. Cranial Nerves: Pupils are equal, round, and reactive to light. Extraocular muscles are intact. There is no facial asymmetry. Tongue is symmetric and midline with no atrophy or fasciculation. The patient is hard of hearing. He does have hearing aids on. Motor Examination: Normal strength throughout except for elbow extension, 4/5 weakness due to shoulder pain restricting the movement. The patient denied any radicular neck pain. Reflexes : 2+ in the upper and lower extremities symmetrically with 0 at the ankles bilaterally. Vibration is absent at the toes bilaterally. Coordination: Normal [id number] bilaterally. Romberg sign is negative. Gait: Normal stance, slightly wide based gait, but the patient is able to ambulate independently. He was able to use the bathroom without assistance. LABS, IMAGING AND OTHER DIAGNOSTIC TESTING: WBC 11.6, hematocrit of 41, platelet count of 136. INR is 2.55. Sodium of 136, potassium 3.9, chloride 106 , carbon dioxide of 26, BUN of 16, creatinine is 0.75, glucose of 138, lactic acid is 2.1. Total protein is 5.3. Urinalysis is negative for pyuria. CT head without contrast showed no evidence of acute intracranial abnormality. There is mild cortical atrophy. ASSESSMENT AND RECOMMENDATIONS: Mr. Nader Sharif is a 73-year-old man with a history of atrial fibrillation, on Coumadin with therapeutic INR; mitral valve repair with metal ring according to the patient's spouse that is MRI incompatible; hypertension, who presented to [facility] yesterday with seizure-like activity. 1. New-onset seizures based on the semiology, witnessed convulsion and tongue laceration. The patient does not recall the events. Unfortunately, these seizures are usually secondary to either a cortical stroke, brain tumor, or infection. I do not see any evidence of stroke or brain tumors on the CT; however, this is very limited due to this is not the ideal study to look for such etiologies. The patient cannot undergo an MRI as of now because of the ring around the mitral valve that was done in [place] in 2011. Further information regarding the MRI compatibility is being investigated by the primary team and Radiology. The patient has no focal deficits on examination and has not had any headaches since starting a levetiracetam. He is tolerating the bolus fairly well without any evidence of agitation or irritability. 2. In terms of the headaches, I suspect these are most likely related to postseizure headaches. He may have had partial seizures without secondary generalization which eventually he generalized early this morning. Given that the headaches have resolved at this time, no further workup is recommended. However, if he does have recurrence of the headache, we need to rule out any temporal arteritis by obtaining ESR and CRP levels. We will also need to rule out any secondary causes of headaches such as brain tumor or abscesses. 3. Atrial fibrillation, on Coumadin with therapeutic INR. 4. Hypertension with normal blood pressure since admission. RECOMMENDATION: I recommend obtaining an MRI of the brain with and without contrast, seizure protocol. If we cannot undergo the MRI due to the mitral valve ring, then we can proceed with a CT head with contrast to look for any enhancing lesions. Continue levetiracetam 1000 mg p.o. twice daily. Please obtain a levetiracetam level, which would help adjust his medication on followup. Follow up with Neurology in 4 to 6 weeks. We discussed with seizure precautions. The patient cannot operate a vehicle, operate any heavy machinery , climb, move tops, ladders or swim unintended. The [facility] rules and regulation recommend no driving for at least 6 to 12 months. He will need neurologist or a primary care physician clearance as an outpatient before he can drive. The patient and the spouse verbalized understanding. We discussed the side effects of levetiracetam which include small percentage that developed irritability and agitation. Continue taking the same dose for now. If his headaches reoccur and there is no actual intracranial abnormalities or causes for the headache, please check an ESR and CRP to evaluate for temporal arteritis. The patient never had any visual disturbance with these symptoms. The etiology of the seizures is still unclear. He is not on any medications that may trigger the seizures. He is not manifesting someone that would have meningitis as his white count is not significantly elevated. He is afebrile and he has no nuchal rigidity. The leukocytosis is most likely reactive secondary to the generalized seizures. I am concerned though that the patient could have underlying malignancy given his significant weight loss. Further evaluation of possible cancer is deferred to the primary team and his PCP. TIME SPENT: 75 minutes of which more than 50% was spent obtaining history, examining the patient, education, counseling and discussing the treatment plan with the patient and his spouse at bedside. Please contact us for any questions or concerns. I will follow up with the results of the EEG and the CT with contrast once it is completed. [id number]/[facility] #: [id number] [facility]
--- NOTE | 2019-05-03 16:28 | PN ---
Subjective Date of Service: 05/03/19 Interval History: Patient was drowsy this morning when I saw him. He dozed off during the conversation. He looked very flushed, when I asked, he said he didn't feel it. said he was pale recently so it was unusual to be flushed right now. told me the whole story that lead him here as also described in neurologist consult. Time line: weight loss 198lb to 160lb recently headache since summer, had scan done outpatient, saw neurologist, didn't find a cause slumped down when sitting on the chair yesterday midnight, found to have jerking movement, eye rolling, send to hospital Objective Active Medications: Acetaminophen (Tylenol Tab*) 650 mg PO Q4H PRN PRN Reason: PAIN - MILD Last Admin: 05/03/19 11:21 Dose: 650 mg Carvedilol (Coreg Tab*) 6.25 mg PO BID [facility] Last Admin: 05/03/19 11:16 Dose: 6.25 mg Sodium Chloride (Ns 0.9% 1000 Ml) 1,000 mls @ 100 mls/hr IV PER RATE [facility] Last Admin: 05/03/19 11:23 Dose: 100 mls/hr Levetiracetam (Keppra Tab*) 1,000 mg PO 0900,2100 [facility] Last Admin: 05/03/19 13:11 Dose: 1,000 mg Lisinopril (Prinivil Tab*) 2.5 mg PO QAM [facility] Last Admin: 05/03/19 11:15 Dose: 2.5 mg Lorazepam (Ativan Inj*) 1 mg IV PUSH Q6H PRN PRN Reason: seizure lasting >2min Miscellaneous (Ativan Pyxis Alvarado) 1 ea N/A .ATIVAN IV ALVARADO PRN PRN Reason: PYXIS ALVARADO Warfarin Sodium (Coumadin Tab(*)) 7.5 mg PO DAILY@1700 [facility]; Protocol Vital Signs - 8 hr 05/03/19 05/03/19 08:24 15:21 Temperature 99.1 F 99.2 F Pulse Rate 69 63 Respiratory 16 20 Rate Blood Pressure 125/69 96/60 (mmHg) O2 Sat by Pulse 99 96 Oximetry Oxygen Devices in Use Now: None Exam: Appearance: well groomed gentleman flushed looking. Neck: No Thyroid Enlargement, Masses Respiratory: Clear to Auscultation Cardiovascular: NL Sounds; No Murmurs; No JVD Abdominal: NL Sounds; No Tenderness; No Distention Neurological: Alert and Oriented x 3, obeys simple command but dozed off, moving all 4 limbs Result Diagrams: 05/03/19 07:57 05/03/19 07:57 Assess/Plan/Problems-Billing Assessment: 73 y/o male with history of atrial fibrillation on coumadin, mitral valve repair with metalic ring in 2011, HTN, presented with seizure activity. - Patient Problems (1) Seizure Current Visit: Yes Status: Acute Code(s): R56.9 - UNSPECIFIED CONVULSIONS SNOMED Code(s): 20024355 Comment: - likely grand mal seizure - no electrolytes disrurbances, no infection - CT brain neg, plan for MRI brain - EEG - keppra loading dose given, on keppra 1000mg bid now - follow up with neurology in 4-6 weeks with a keppra level (2) Headache Current Visit: Yes Status: Acute Code(s): R51 - HEADACHE SNOMED Code(s): 66865429 Comment: - could be postseizure headache - check ESR tomorrow to rule out temporal arteritis (3) Weight loss Current Visit: Yes Status: Acute Comment: - will check thyroid function tomorrow - colonoscopy in 2017 - no superficial lymphadenopathy (4) DVT prophylaxis Current Visit: Yes Status: Acute Code(s): Z29.9 - ENCOUNTER FOR PROPHYLACTIC MEASURES, UNSPECIFIED SNOMED Code(s): 474015129 Comment: warfarin Status and Disposition: Inpatient Medicine. Attestation Documenting Resident: Elsie Snider Supervising Physician: Bret Covington Attending/Supervising Physician Comment: Evaluation by Dr. Smith on 02/15 included negative CRP, ESR,MARY, Lyme, CTH, PSA. Had an ear infection with what sounds like TM rupture in September or October which healed in about 1 month. Was seen by ENT. No focal neurological deficits currently (though right shoulder pain precludes full UE testing), AAOx4. MRI with contrast later tonight. keppra level in AM. Physical therapy. 30 lbs unintentional weight loss 198 (in September)-167. Has been having some drenching night sweats that are more frequent recently. Will add an SPEP and LDH in AM to further evaluate for malignancy. Would also consider EGD as an outpatient given. Could consider CT chest, abdomen, pelvis. Attestation: This service has been performed in part by a resident under the direction of a teaching physician.I, Bret Covington, performed the service, or was physically present during the critical, or alvarado portions of the service, furnished by the resident. I participated in the management of the patient.
[2019-05-03] MEDS ORDERED: Warfarin TAB(*) 7.5 MG PO SCH (17:00)
[2019-05-03] MEDS ORDERED: levETIRAcetam TAB* 500 MG PO SCH (17:00)
[2019-05-03 17:07] LABS: C Reactive Protein 1.12 mg/L (<8.01)
--- NOTE | 2019-05-03 19:15 | EEG ---
ELECTROENCEPHALOGRAPHY: DATE OF STUDY: 05/03/19 DATE READ: 05/03/19 ORDERED BY: Alexandra Phoenix DO. MEDICATIONS: 1. Coreg. 2. Coumadin. 3. Keppra. 4. Ativan. DURATION: 1204 - 1229. CLINICAL PROBLEM: Mr. Sharif is a 73-year-old male, who was admitted for altered mental status and decreased responsiveness. This EEG was obtained to evaluate for epileptiform abnormalities or electrographic seizures. The patient did have an episode of seizure-like activity with generalized convulsions, eyes rolling to the back of the head, tongue biting. They occurred today at 2 a.m. He was treated with Keppra and Ativan, and the patient has not had any further episodes. This EEG was obtained to evaluate for epileptiform abnormalities or electrographic seizures. CLINICAL STATE: Sleep. The majority of this recording was obtained during sleep state. REPORT: There is attenuation of the occipital rhythm with roving eye movements , accompanied drowsiness. The sleep background was disorganized with persistent theta frequency and brief runs of sleep spindle and vertex waves. These sleep transients showed appropriate morphology and are bilaterally synchronous and symmetrical. There were a few epochs where the patient has some awaking state with the background showing excessive low voltage beta frequency. The patient was unable to maintain wakefulness. There were no clear epileptiform discharges or electrographic seizures. Hyperventilation and photic stimulation were not performed. Single electrode EKG showed a normal sinus rhythm with a rate of 60 beats per minute. CLINICAL IMPRESSION: This is a mildly abnormal EEG due to persistent sleep state with poorly sustained wakefulness. Otherwise, there was normal organization with some diffuse low voltage beta frequency, would suggest recent benzodiazepine use. Overall, this EEG is within the normal range to possible mild diffuse encephalopathy, which can be related to postictal state or medication effect. There were no epileptiform discharges or electrographic seizures. This EEG was obtained after the patient was treated with benzodiazepine and Keppra. [id number]/[facility] #: [id number] [facility]
[2019-05-03] MEDS ORDERED: Gadoteridol* (CONTRAST) 279.3 MG/ML 10 ML IV ONE (20:56)
[2019-05-03] MEDS ORDERED: Enoxaparin(*) 40 MG/0.4 ML SYR SUBCUT SCH (21:00)
[2019-05-03] MEDS: Carvedilol TAB* 3.125 MG PO SCH (21:54)
[2019-05-04 07:01] LABS: ABS Lymphocytes 1.3 10^3/ul (1.0-4.8); ABS Monocytes 0.8 10^3/ul (0-0.8); ABS Neutrophils 5.7 10^3/ul (1.5-7.7); Eosinophil % 0.3 %; Hematocrit 41 % (42-52); Hemoglobin 14.3 g/dL (14.0-18.0); Lymphocyte % 16.9 %; Mean Corpuscular HGB Conc 35 g/dL (31-36); Mean Corpuscular Hemoglobin 33 pg (27-31); Mean Corpuscular Volume 94 fL (80-94); Mean Platelet Volume 8.9 fL (7.4-10.4); Platelet Count 128 10^3/uL (150-450); Red Blood Count 4.36 10^6 /uL (4.18-5.48); Red Cell Distribution Width 14 % (10-15); White Blood Count 7.9 10^3/uL (3.5-10.8)
[2019-05-04 07:21] LABS: BUN/Creatinine Ratio 22.6 (8-20); Calcium 8.7 mg/dL (8.6-10.3); EGFR African American 107.8 (>60); EGFR Non-African American 89.1 (>60); Potassium 4.1 mmol/L (3.5-5.0)
[2019-05-04 07:51] LABS: TSH (Thyroid Stimulating Horm) 1.84 mcIU/mL (0.34-5.60)
[2019-05-04 08:34] LABS: Erythrocyte Sed Rate 1 mm/Hr (0-19)
[2019-05-04] MEDS: Lisinopril TAB* 5 MG PO SCH (08:38)
[2019-05-04] MEDS: Carvedilol TAB* 3.125 MG PO SCH (08:38)
[2019-05-04] MEDS: levETIRAcetam TAB* 500 MG PO SCH (08:38)
[2019-05-04] MEDS: NS 0.9% 1000 ML** 1,000 ML IV SCH (10:09)
[2019-05-04 11:24] VITALS: BP 98/63
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
[2019-05-08 17:42] LABS: Albumin 2.9 g/dL (3.4-4.7); Albumin/Globulin Ratio 1.22; Gamma Globulin 0.6 g/dL (0.6-1.6); Total Protein(PEP) 5.2 g/dL (6.3 - 7.9)
== END 2019-05-04 12:25 | disposition home or self-care (01) ==
LOC: ED 03:40 → MEDTELE 06:08 → INTOOBSV 06:08
PROVIDERS: ADMIT Hospitalist; ATTEND Internal Medicine
DX: G40.909 Epilepsy, unspecified, not intractable, without status epilepticus (principal); I48.91 Unspecified atrial fibrillation; I10 Essential (primary) hypertension; Z79.01 Long term (current) use of anticoagulants; Z95.4 Presence of other heart-valve replacement; Z79.899 Other long term (current) drug therapy; Z86.19 Personal history of other infectious and parasitic diseases
CPT/HCPCS: 36415; 70030; 70450; 70553; 80048; 80053; 80177; 81003; 81015; 83605; 83615; 83735; 84100; 84155; 84165; 84443; 85025; 85610; 85652; 86140; 87086; 95819; 99284; A9270-GY; A9579; G0378; J1953